=== PATIENT | male | born 2000 | race African-American/Black ===

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

== ENCOUNTER 2018-02-03 13:29 | Emergency (ER) | payer SELFPAY ==
[~2018-02-03] VITALS: Ht 175.3 cm; Wt 68.0 kg
[2018-02-03 15:15] VITALS: BP 111/59
--- NOTE | 2018-02-03 15:17 | RAD ---
Scrotal ultrasound, 02/03/2018: HISTORY: Testicular lump The right testicle measures 4.1 x 2.6 x 2.1 cm while the left testicle measures 4.6 x 3.2 x 2.4 cm. No testicular mass is seen. There is symmetric blood flow in the testicles. There is a moderate sized epididymal cyst on the right measuring 14 x 17 x 9 mm. No other scrotal mass is seen. There is only trace amount of fluid in the scrotal sac. IMPRESSION: 1. No testicular abnormality is detected. 2. Moderate sized right epididymal cyst. Electronically signed by: Cody Kramer MD (02/03/2018 3:13 PM) [facility]
--- NOTE | 2018-02-03 15:24 | PHYS DOC ---
Past Medical History Past Medical History: No Pertinent History, Seizure Past Surgical History: No Surgical History Alcohol Use: None Drug Use: Marijuana Adult General Chief Complaint Chief Complaint: ABDOMINAL PAIN HPI HPI Patient is a 17 year old M who presents with right inguinal groin pain and a small lump on the right testicle. He reports he noticed the lump a couple of days ago. He c/o groin pain for the last few days as well. He reports he was lifting an carrying heavy boxes prior to pain. No painful urination. Review of Systems Review of Systems Constitutional: Denies fever or chills [] Respiratory: Denies cough or shortness of breath [] Cardiovascular: No additional information not addressed in HPI [] GI: Denies abdominal pain, nausea, vomiting. : Denies dysuria or hematuria [] Musculoskeletal: Denies back pain or joint pain [] Integument: Denies rash or skin lesions [] Neurologic: Denies headache, focal weakness or sensory changes [] Endocrine: Denies polyuria or polydipsia [] All other systems were reviewed and found to be within normal limits, except as documented in this note. Allergies Allergies Allergies Coded Allergies Type Severity Reaction Last Updated Verified No Known Drug Allergies 06/02/16 No Physical Exam Physical Exam Constitutional: Well developed, well nourished, no acute distress, non-toxic appearance. [] HENT: Normocephalic, atraumatic Eyes: PERRLA, EOMI, conjunctiva normal, no discharge. [] Neck: Normal range of motion, no tenderness, supple, no stridor. [] Cardiovascular:Heart rate regular rhythm, no murmur [] Lungs & Thorax: Bilateral breath sounds clear to auscultation [] Abdomen: Bowel sounds normal, soft, no tenderness. Tenderness along the right inguinal area, no hernia notified. Skin: Warm, dry, no erythema, no rash. [] : pea-sized mobile mass to right testicle Neurologic: Alert and oriented X 3, normal motor function, normal sensory function, no focal deficits noted. [] Psychologic: Affect normal, judgement normal, mood normal. [] Current Patient Data Vital Signs Vital Signs Date Time Temp Pulse Resp B/P (MAP) Pulse Ox O2 Delivery O2 Flow Rate FiO2 02/03/18 15:15 72 20 111/59 (76) 98 10/2/18 14:02 98.7 Room Air 98.7 EKG EKG [] Radiology/Procedures Radiology/Procedures PATIENT: JOSE KATZ TACCOUNT: [id number]#: [id number] : 2000 LOCATION: ER AGE: 17 SEX: M EXAM STATUS: REG ER ORD. PHYSICIAN: ONEIL OROSCO APRN REASON: lump on right testicle PROCEDURE: TESTICULAR/SCROTUM Scrotal ultrasound, 02/03/2018: HISTORY: Testicular lump The right testicle measures 4.1 x 2.6 x 2.1 cm while the left testicle measures 4.6 x 3.2 x 2.4 cm. No testicular mass is seen. There is symmetric blood flow in the testicles. There is a moderate sized epididymal cyst on the right measuring 14 x 17 x 9 mm. No other scrotal mass is seen. There is only trace amount of fluid in the scrotal sac. IMPRESSION: 1. No testicular abnormality is detected. 2. Moderate sized right epididymal cyst. Electronically signed by: Cody Kramer MD (02/03/2018 3:13 PM) [facility] [place] and SIGNED BY: CODY KRAMER MD DATE: 02/03/18 1500 [] Course & Med Decision Making Course & Med Decision Making Pertinent Labs and Imaging studies reviewed. (See chart for details) Groin strain vs hernia. Patient reports the testicle is bothering him even at rest. Advised to f/u with urology. [] Dragon Disclaimer Dragon Disclaimer This electronic medical record was generated, in whole or in part, using a voice recognition dictation system. Departure Departure Impression: Primary Impression: Groin strain Additional Impression: Epididymal cyst Disposition: HOME, SELF-CARE Condition: GOOD Referrals: NO PCP (PCP) HERBIE WILSON MD Patient Instructions: Groin Strain, Scrotal Swelling Problem Qualifiers Primary Impression: Groin strain Encounter type: initial encounter Laterality: right Qualified Codes: S76.211A - Strain of adductor muscle, fascia and tendon of right thigh, initial encounter ONEIL OROSCO APRN Feb 03, 2018 15:24
== END 2018-02-03 15:35 | disposition home or self-care (01) ==
LOC: ER 13:29
DX: S76.211A Strain of adductor muscle, fascia and tendon of right thigh, initial encounter (principal); N50.3 Cyst of epididymis; N50.89 Other specified disorders of the male genital organs; X58.XXXA Exposure to other specified factors, initial encounter; Y93.89 Activity, other specified; Y92.89 Other specified places as the place of occurrence of the external cause; Y99.8 Other external cause status
CPT/HCPCS: 76870; 99284

== ENCOUNTER 2018-05-14 19:56 | Emergency (ER) | payer SELFPAY ==
[~2018-05-14] VITALS: Ht 172.7 cm; Wt 79.4 kg
[2018-05-14 20:58] VITALS: BP 111/63
[2018-05-14] MEDS ORDERED: OMEP40CA5 PO (21:37)
[2018-05-14 22:08] LABS: BASO # 0.1 x10^3/uL (0.0-0.2); BASO % 1 % (0-3); EOS # 0.6 x10^3/uL (0.0-0.7); EOS % 7 % (0-3); HEMATOCRIT 44.9 % (39.0-53.0); HEMOGLOBIN 15.6 g/dL (13.0-17.5); LYMPH # 2.9 x10^3/uL (1.0-4.8); LYMPH % 34 % (24-48); MEAN CORPUSCULAR HEMOGLOBIN 29 pg (25-35); MEAN CORPUSCULAR HGB CONC 35 g/dL (31-37); MEAN CORPUSCULAR VOLUME 83 fL (79-100); MONO # 0.5 x10^3/uL (0.0-1.1); MONO % 6 % (0-9); NEUT # 4.3 x10^3uL (1.8-7.7); NEUT % 52 % (31-73); PLATELET COUNT 243 x10^3/uL (140-400); RED BLOOD COUNT 5.39 x10^6/uL (4.30-5.70); RED CELL DISTRIBUTION WIDTH 14.4 % (11.5-14.5); WHITE BLOOD COUNT 8.4 x10^3/uL (4.0-11.0)
[2018-05-14 22:18] LABS: CALCIUM 9.5 mg/dL (8.5-10.1); CREATININE 0.7 mg/dL (0.7-1.3); GFR 175.8; POTASSIUM 3.6 mmol/L (3.5-5.1)
[2018-05-14 22:23] LABS: ALBUMIN 3.9 g/dL (3.4-5.0); ALBUMIN/GLOBULIN RATIO 1.1 (1.0-1.7); TOTAL BILIRUBIN 0.5 mg/dL (0.2-1.0); TOTAL PROTEIN 7.6 g/dL (6.4-8.2)
--- NOTE | 2018-05-15 00:01 | PHYS DOC ---
Past Medical History Past Medical History: GERD Past Surgical History: No Surgical History Alcohol Use: Rarely Drug Use: Marijuana Adult General Chief Complaint Chief Complaint: GI PROBLEM HPI HPI Patient is a 17 year old male who is presenting with intermittent abdominal discomfort epigastric area he had a darker colored bowel movement today he was worried about that last week he saw a few drops of blood in his stool he feels nauseous he does have some burning pain in his epigastric area is well comes and goes currently is not having it but he wanted to come get checked out. Review of Systems Review of Systems Constitutional: Denies fever or chills [] Eyes: Denies change in visual acuity, redness, or eye pain [] HENT: Denies nasal congestion or sore throat [] Respiratory: Denies cough or shortness of breath [] Neurologic: Denies headache, focal weakness or sensory changes [] Endocrine: Denies polyuria or polydipsia [] All other systems were reviewed and found to be within normal limits, except as documented in this note. Allergies Allergies Allergies Coded Allergies Type Severity Reaction Last Updated Verified No Known Drug Allergies 06/02/16 No Physical Exam Physical Exam Constitutional: Well developed, well nourished, no acute distress, non-toxic appearance. [] HENT: Normocephalic, atraumatic, bilateral external ears normal, oropharynx moist, no oral exudates, nose normal. [] Eyes: PERRLA, EOMI, conjunctiva normal, no discharge. [] Neck: Normal range of motion, no tenderness, supple, no stridor. [] Pulmonary: Normal respiratory effort no increased work of breathing no obvious chest wall trauma Abdomen: Bowel sounds normal, soft, no tenderness, no masses, no pulsatile masses. [] Skin: Warm, dry, no erythema, no rash. [] Back: No tenderness, no CVA tenderness. [] Extremities: No tenderness, no cyanosis, no clubbing, ROM intact, no edema. [] Neurologic: Alert and oriented X 3, normal motor function, normal sensory function, no focal deficits noted. [] Psychologic: Affect normal, judgement normal, mood normal. [] Current Patient Data Vital Signs Vital Signs Date Time Temp Pulse Resp B/P (MAP) Pulse Ox O2 Delivery O2 Flow Rate FiO2 05/14/18 20:58 99.5 78 20 111/63 (79) 98 Room Air 99.5 Lab Values Laboratory Tests Test 05/14/18 22:00 White Blood Count 8.4 x10^3/uL (4.0-11.0) Red Blood Count 5.39 x10^6/uL (4.30-5.70) Hemoglobin 15.6 g/dL (13.0-17.5) Hematocrit 44.9 % (39.0-53.0) Mean Corpuscular Volume 83 fL (79-100) Mean Corpuscular Hemoglobin 29 pg (25-35) Mean Corpuscular Hemoglobin Concent 35 g/dL (31-37) Red Cell Distribution Width 14.4 % (11.5-14.5) Platelet Count 243 x10^3/uL (140-400) Neutrophils (%) (Auto) 52 % (31-73) Lymphocytes (%) (Auto) 34 % (24-48) Monocytes (%) (Auto) 6 % (0-9) Eosinophils (%) (Auto) 7 % (0-3) H Basophils (%) (Auto) 1 % (0-3) Neutrophils # (Auto) 4.3 x10^3uL (1.8-7.7) Lymphocytes # (Auto) 2.9 x10^3/uL (1.0-4.8) Monocytes # (Auto) 0.5 x10^3/uL (0.0-1.1) Eosinophils # (Auto) 0.6 x10^3/uL (0.0-0.7) Basophils # (Auto) 0.1 x10^3/uL (0.0-0.2) Sodium Level 141 mmol/L (136-145) Potassium Level 3.6 mmol/L (3.5-5.1) Chloride Level 101 mmol/L (98-107) Carbon Dioxide Level 31 mmol/L (21-32) Anion Gap 9 (6-14) Blood Urea Nitrogen 7 mg/dL (8-26) L Creatinine 0.7 mg/dL (0.7-1.3) Estimated GFR (Cockcroft-Gault) 175.8 BUN/Creatinine Ratio 10 (6-20) Glucose Level 110 mg/dL (70-99) H Calcium Level 9.5 mg/dL (8.5-10.1) Total Bilirubin 0.5 mg/dL (0.2-1.0) Aspartate Amino Transferase (AST) 12 U/L (15-37) L Alanine Aminotransferase (ALT) 20 U/L (16-63) Alkaline Phosphatase 115 U/L (46-116) Total Protein 7.6 g/dL (6.4-8.2) Albumin 3.9 g/dL (3.4-5.0) Albumin/Globulin Ratio 1.1 (1.0-1.7) Lipase 124 U/L (73-393) Laboratory Tests 05/14/18 22:00 Laboratory Tests 05/14/18 22:00 EKG EKG [] Radiology/Procedures Radiology/Procedures [] Course & Med Decision Making Course & Med Decision Making Pertinent Labs and Imaging studies reviewed. (See chart for details) []Labs essentially normal 17-year-old male with epigastric burning discomfort intermittent not currently reported some dark stool but his hemoglobin is normal very low suspicion for acute GI bleed. Patient says he just had a bowel movement and was unable to provide a sample. at this point we discharged in stable condition prescription for omeprazole [employer] [facility] Follow-Up As Needed for Persistent or Any New Symptoms. Dragon Disclaimer Dragon Disclaimer This electronic medical record was generated, in whole or in part, using a voice recognition dictation system. Departure Departure Impression: Primary Impression: Abdominal pain Disposition: 01 HOME, SELF-CARE Condition: STABLE Patient Instructions: Abdominal Pain (Nonspecific) Scripts Omeprazole (OMEPRAZOLE) 40 Mg Capsule. 1 CAP PO DAILY, #30 CAP 3 Refills Prov: TOÑITO SLAUGHTER MD 05/14/18 TOÑITO SLAUGHTER MD May 15, 2018 00:01
== END 2018-05-14 22:39 | disposition home or self-care (01) ==
LOC: ER 19:56
DX: R10.13 Epigastric pain (principal); R11.0 Nausea; K92.1 Melena; K21.9 Gastro-esophageal reflux disease without esophagitis
CPT/HCPCS: 36415; 80053; 83690; 85025; 99283